=== PATIENT | male | born 1955 | race Caucasian/White ===

== ENCOUNTER 2025-08-01 09:01 | Emergency (ER) | payer OTHER ==
[~2025-08-01] VITALS: Ht 162.5 cm; Wt 66.7 kg
[2025-08-01] MEDS ORDERED: PREDNISONE50 MG PO (09:58)
[2025-08-01] MEDS ORDERED: VIBRAMYCIN100 MG PO (09:58)
== END 2025-08-01 10:00 | disposition home or self-care (01) ==
LOC: ED 09:01
DX: J32.9 Chronic sinusitis, unspecified (principal); E11.9 Type 2 diabetes mellitus without complications; I10 Essential (primary) hypertension; Z88.1 Allergy status to other antibiotic agents

== ENCOUNTER 2025-08-31 19:03 | Emergency (ER) | payer MEDICARE ==
[~2025-08-31] VITALS: Wt 59.0 kg
[~2025-08-31 19:03] MED LIST: PREDNISONE50 MG PO; VIBRAMYCIN100 MG PO
[2025-08-31] MEDS ORDERED: AMOX-CLAV 875-1 EACH PO (20:19)
[2025-08-31] MEDS ORDERED: Amoxicillin/Clavulanate Pota 875 MG TAB PO ONE (20:20)
== END 2025-08-31 20:23 | disposition home or self-care (01) ==
LOC: ED 19:03
DX: J01.90 Acute sinusitis, unspecified (principal); I10 Essential (primary) hypertension; E11.9 Type 2 diabetes mellitus without complications; E78.00 Pure hypercholesterolemia, unspecified; Z88.1 Allergy status to other antibiotic agents